=== PATIENT | female | born 1975 | race Caucasian/White ===

== ENCOUNTER 2017-03-30 18:28 | Emergency (ER) | payer MEDICAID ==
--- NOTE | 2017-03-30 18:37 | ERNOTE ---
Medical Problem HPI - General Time Seen by Provider: 03/30/17 18:32 Source: patient Exam Limitations: no limitations - Immun/Allergies/Home Medications Immunizations: IMMUNIZATION HX Immunizations Up to Date Yes Allergies/Adverse Reactions: Allergies No Known Allergies Allergy (Verified 04/22/15 17:25) Home Medications: HOME MEDICATIONS Albuterol Sulfate [Albuterol Sulfate Hfa] 1 puff IH PRN PRN 08/17/13 [Last Taken 01/24/14] Lisinopril [Zestril] 2.5 mg PO DAILY 08/17/13 [Last Taken 01/24/14] Cetirizine HCl [Zyrtec] 10 mg PO DAILY PRN 12/22/13 [Last Taken 01/24/14] Levothyroxine Sodium [Synthroid] 225 mcg PO DAILY 12/22/13 [Last Taken 01/23/14] Budesonide/Formoterol Fumarate [Symbicort 160-4.5 Mcg Inhaler] 2 puff IH DAILY 03/29/14 [Last Taken Unknown] HYDROcodone/ACETAMINOPHEN [[place] 5-325] 1 each PO QID PRN #20 tablet 03/30/17 [ Last Taken Unknown] Montelukast Sodium [Singulair] 4 mg PO DAILY 03/30/17 [Last Taken Unknown] - History of Present History Narrative: pt got up to walk at home, prior to presentation to the ED and felt her left foot invert and her ankle give out on her. She is here for left ankle swelling and pain. Pt states that she has hurt her left ankle before. she is unable to bear weight onto her left ankle. she is in a wheelchair Review of Systems - Review of Systems Constitutional: Present: no symptoms reported EYE: Present: no symptoms reported ENT: Present: no symptoms reported Respiratory: Present: no symptoms reported Cardiology: Present: no symptoms reported Gastrointestinal/Abdominal: Present: no symptoms reported Genitourinary: Present: no symptoms reported Musculoskeletal: Present: See HPI Skin: Present: no symptoms reported - Immunizations Immunizations Up to Date: Yes Physical Exam - Physical Exam General Appearance: Present: wd/wn, alert, no apparent distress Neck: Present: normal inspection Respiratory: Present: no respiratory distress, normal breath sounds, no accessory muscle use, chest nontender, lungs clear Cardiovascular/Chest: Present: regular rate, rhythm, no murmur, normal peripheral pulses Extremity Exam: Present: other - swelling and tenderness of the lateral malleolus of the left lower extremity is noted on exam is unable to bear weight on left foot. Neurological Exam: Present: alert, oriented, normal mood/affect Skin Exam: Present: normal color, warm/dry ED Progress - Vital Signs Patient's Vital Signs:: I have reviewed the patient's vital signs. - X-Ray X-Ray #1 X-Ray: ankle Plan - Plan Plan: This patient will be immobilized and placed in a posterior splint, the x-ray did not show an obvious fracture patient will be Given crutches for nonweightbearing she is to follow-up with her primary care doctor in 48-72 hours. he pain will Be treated with norco 5-325mg as needed for pain Departure - Departure Clinical Impression: Left ankle sprain Qualifiers: Encounter type: initial encounter Involved ligament of ankle: unspecified ligament Qualified Code(s): S93.402A - Sprain of unspecified ligament of left ankle, initial encounter Disposition: Home self-care Condition: Good Instructions: Ankle Sprain, Ankle Sprain, [id number] Prescriptions: HYDROcodone/ACETAMINOPHEN [[place] 5-325] 1 each PO QID PRN #20 tablet PRN Reason: Pain
[2017-03-30] MEDS ORDERED: ONDANSETRON 4 MG TAB.RAPDIS PO ONE (19:09)
[2017-03-30] MEDS ORDERED: ONDANSETRON 4 MG TAB.RAPDIS ONE (19:10)
[2017-03-30] MEDS ORDERED: HYDROcodone/ACETAMINOPHEN 1 EACH TABLET PO ONE (19:13)
[2017-03-30] MEDS ORDERED: HYDROcodone/ACETAMINOPHEN 1 EACH TABLET ONE (19:14)
[2017-03-30 19:44] VITALS: BP 139/67
== END 2017-03-30 19:38 | disposition home or self-care (01) ==
LOC: ER 18:28
PROC: 2W3RX1Z Immobilization of Left Lower Leg using Splint (ICD-10-PCS; principal; 2017-03-30)
DX: S93.402A Sprain of unspecified ligament of left ankle, initial encounter (principal); X50.1XXA Overexertion from prolonged static or awkward postures, initial encounter; Y93.01 Activity, walking, marching and hiking; Y92.009 Unspecified place in unspecified non-institutional (private) residence as the place of occurrence of the external cause

== ENCOUNTER 2017-06-11 12:42 | Emergency (ER) | payer MEDICAID ==
[2017-06-11 12:49] VITALS: BP 170/100
--- NOTE | 2017-06-11 12:58 | ERNOTE ---
Date of Service: 06/11/17 Time Seen by Provider: 06/11/17 12:55 Stated Complaint: TROUBLE BREATHING Presenting Symptoms:: cough, other - Nasal congestion, Shortness of breath Source: patient, family, RN notes reviewed Exam Limitations: no limitations Immunizations: IMMUNIZATION HX Immunizations Up to Date Yes Allergies/Adverse Reactions: Allergies No Known Allergies Allergy (Verified 06/11/17 12:49) Home Medications: HOME MEDICATIONS Albuterol Sulfate [Albuterol Sulfate Hfa] 1 puff IH PRN PRN 08/17/13 [Last Taken 01/24/14] Cetirizine HCl [Zyrtec] 10 mg PO DAILY PRN 12/22/13 [Last Taken 01/24/14] Levothyroxine Sodium [Synthroid] 225 mcg PO DAILY 12/22/13 [Last Taken 01/23/14] Budesonide/Formoterol Fumarate [Symbicort 160-4.5 Mcg Inhaler] 2 puff IH DAILY 03/29/14 [Last Taken Unknown] HYDROcodone/ACETAMINOPHEN [[place] 5-325] 1 each PO QID PRN #20 tablet 03/30/17 [ Last Taken Unknown] Montelukast Sodium [Singulair] 4 mg PO DAILY 03/30/17 [Last Taken Unknown] Albuterol Sulfate [Albuterol Sulfate 2.5 MG/3 ML] 2.5 mg IH Q4H PRN #30 vial.neb 06/11/17 [Last Taken Unknown] Albuterol Sulfate/Ipratropium [Duoneb 2.5-0.5MG/3ML Soln] 3 ml IH Q6H PRN #30 nebu 06/11/17 [Last Taken Unknown] Fluticasone Propionate [Flonase] 2 spray NS DAILY #1 inhaler 06/11/17 [Last Taken Unknown] Hydrochlorothiazide 12.5 mg PO DAILY 06/11/17 [Last Taken Unknown] predniSONE [Prednisone] 2 tab PO DAILY #14 tab 06/11/17 [Last Taken Unknown] - History of Present Ilness Narrative: 41 y/o female ambulatory to the ED for sinus congestion, cough and breathing difficulty that began 2 days ago. She has allergies and asthma, but reports that she has been well controlled for several years on her current medications. She has been camping at the [place] and attributes the cold air at night to some of the symptoms. She is currently on Bactrim for a UTI. Timing: getting worse Frequency/Possible Cause: Reports: allergen exposure, smoke exposure Associated Symptoms: Reports: cough, shortness of breath, wheezing, facial pain , nasal congestion, nasal drainage, headache. Denies: chest pain/soreness, dizziness, lightheadedness, earache, sore throat, muscle aches, fever/chills Prior Treatment: Reports: recently seen, currently on antibiotics Review of Systems - Review of Systems Constitutional: Present: fatigue, malaise. Absent: chills EYE: Absent: eye discharge, tearing ENT: Present: nose congestion, nasal drainage. Absent: ear pain Respiratory: Present: shortness of breath, cough, wheezing. Absent: stridor Cardiology: Absent: chest pain, palpitations, syncope Gastrointestinal/Abdominal: Absent: nausea, vomiting, abdominal pain Genitourinary: Present: no symptoms reported Musculoskeletal: Absent: muscle pain, joint pain Skin: Absent: rash, lesions, lumps Neurological: Present: headache. Absent: dizziness/light-headedness Endocrine: Present: no symptoms reported Hematologic/Lymphatic: Present: no symptoms reported Psych: Present: no symptoms reported - Patient's Past Medical History Patient History - Medical: Arthritis, Obesity, UTI'S Patient History - Cardiac/Respiratory: Asthma Patient History - Cancer: No Hx of Cancer Patient History - Surgical Procedures: Hysterectomy, Tubal Ligation Patient History - Other: None - Social History Living Situations: home Abuse History: No History of abuse Psych History: No pertinent hx Smoking Status: Never smoker Alcohol Use: none Drug Use: none - Immunizations Immunizations Up to Date: Yes Physical Exam - Physical Exam General Appearance: Present: wd/wn, alert, mild distress Head Exam: Present: normal inspection Eye Exam: Normal inspection: bilateral Ears, Nose, Throat: Present: nasal congestion, sinus pain/drainage, pharyngeal erythema. Absent: abnormal TM (R), abnormal TM (L) Neck: Present: normal inspection, nontender, supple Respiratory: Present: respiratory distress - Mild, accessory muscle use, decreased breath sounds, expiration (prolonged) Cardiovascular/Chest: Present: regular rate, rhythm, no murmur Extremity Exam: Present: normal inspection, normal range of motion, no edema Neurological Exam: Present: alert, oriented, normal mood/affect, no motor/ sensory deficits Skin Exam: Present: normal color, warm/dry ED Progress - Vital Signs Patient's Vital Signs:: I have reviewed the patient's vital signs. Vital Signs: Vital Signs 06/11/17 12:45 Temperature 36.8 C Pulse Rate 85 Respiratory 14 Rate Blood Pressure 170/100 O2 Sat by Pulse 95 Oximetry - Progress/Reassessment Chief Complaint: Upper Respiratory Symptoms Progress:: Improved Progress Note-Subjective: SpO2 initially 92%, improved to 97% with Duoneb treatment. Lungs with improved air movement and mild wheezing as well. Patient states she is breathing much better - still appears to be somewhat labored but she reports it is partly d/t her severe nasal congestion. Departure - Departure Clinical Impression: Asthma with acute exacerbation Qualifiers: Asthma severity: unspecified severity Qualified Code(s): J45.901 - Unspecified asthma with (acute) exacerbation Disposition: Home Follow Up Needed Condition: Good Instructions: Asthma, Adult, [id number] Additional Instructions: Nasal saline spray as needed Avoid nasal decongestant overuse Continue your regular medications Return to ER if symptoms worsen Prescriptions: Albuterol Sulfate [Albuterol Sulfate 2.5 MG/3 ML] 2.5 mg IH Q4H PRN #30 vial.neb PRN Reason: Wheezing Albuterol Sulfate/Ipratropium [Duoneb 2.5-0.5MG/3ML Soln] 3 ml IH Q6H PRN #30 nebu PRN Reason: Wheezing Fluticasone Propionate [Flonase] 2 spray NS DAILY #1 inhaler predniSONE [Prednisone] 2 tab PO DAILY #14 tab
[2017-06-11] MEDS ORDERED: ALBUTEROL SULFATE/IPRATROPIUM 3 ML NEBU IH ONE ×2 (13:07→13:11)
[2017-06-11] MEDS ORDERED: METHYLPREDNISOLONE SOD SUCC/PF 125 MG/2 ML VIAL IV ONE (13:07)
[2017-06-11] MEDS ORDERED: METHYLPREDNISOLONE SOD SUCC/PF 125 MG/2 ML VIAL ONE (13:11)
== END 2017-06-11 14:12 | disposition home or self-care (01) ==
LOC: ER 12:42
DX: J45.901 Unspecified asthma with (acute) exacerbation (principal); M19.90 Unspecified osteoarthritis, unspecified site